=== PATIENT | female | born 1970 | race Caucasian/White ===

== ENCOUNTER 2019-01-25 13:43 | Emergency (ER) | payer OTHER ==
[~2019-01-25] VITALS: Ht 175.3 cm; Wt 77.1 kg
[2019-01-25] MEDS ORDERED: VIIBRYD1 EAC1 (13:55)
[2019-01-25] MEDS ORDERED: Prednisone20 MG PO (14:25)
[2019-01-25] MEDS ORDERED: KETO10 PO (14:25)
[2019-01-25] MEDS ORDERED: Percocet 5-3251 EACH PO (14:25)
== END 2019-01-25 14:50 | disposition home or self-care (01) ==
LOC: ER 13:43
DX: R07.81 Pleurodynia (principal); Z88.8 Allergy status to other drugs, medicaments and biological substances; Z79.899 Other long term (current) drug therapy; F17.200 Nicotine dependence, unspecified, uncomplicated
CPT/HCPCS: 71046; 96372; 99283-25; J1885; J7512